=== PATIENT | female | born 2000 | race Caucasian/White ===

== ENCOUNTER 2021-02-03 02:36 | Emergency (ER) | payer BC, MEDICAID ==
[~2021-02-03] VITALS: Ht 167.6 cm; Wt 63.6 kg
[~2021-02-03 02:36] MED LIST: ABILIFY5 MG PO; INTUNIV1 MG PO; MILLIPRED10 MG/5 ML PO; PROAIR HFA0.09 MG/AC IH; RISPERDAL 0.20.25 MG; RT ALBUTER2.5 MG/0.5 IH; SINGULAIR 4MG CH4 MG PO; SUDAFED 12 HOU120 MG PO; VYVANSE20 MG PO
[2021-02-03 02:39] VITALS: TEMP 96.3
[2021-02-03 03:00] LABS: BASO # 0.1 K/mm3 (0.0-0.2); EOS # 0.4 K/mm3 (0.0-0.7); EOS % 3.7 % (0-4.0); GRAN # 7.1 K/mm3 (1.4-6.5); GRAN % 61.6 % (42.2-75.2); HEMOGLOBIN 12.8 g/dl (12.0-15.0); LYMPH # 3.2 K/mm3 (1.2-3.4); LYMPH % 27.5 % (20.0-51.0); MEAN CELL VOLUME 92 fl (80.0-95.0); MEAN CORPUSCULAR HEMOGLOBIN 30 pg (26.0-32.0); MEAN CORPUSCULAR HGB CONC 32 g/dl (33.0-37.0); MEAN PLATELET VOLUME 9.4 fl (7.4-10.4); MONO # 0.7 K/mm3 (0.1-0.6); MONO % 5.9 % (1.7-9.3); PLATELET COUNT 381 K/mm3 (130-400); RED BLOOD COUNT 4.34 M/mm3 (4.10-5.30)
[2021-02-03 03:17] LABS: ALANINE AMINOTRANSFERASE 11 U/L (0-55); ALBUMIN 4.6 gm/dL (3.5-5.0); ALCOHOL(ethanol),MEDICAL 225 mg/dL (0-10); ALKALINE PHOSPHATASE 66 U/L (40-150); ANION GAP 12 mmol/L (7-16); AST,SGOT 21 U/L (5-34); BILIRUBIN,TOTAL 0.3 mg/dL (0.2-1.2); BLOOD UREA NITROGEN 9 mg/dL (8-21); CALCIUM 9.5 mg/dL (8.4-10.2); CARBON DIOXIDE 17 mmol/L (22-29); CHLORIDE 109 mmol/L (98-107); CREATININE, serum 0.81 mg/dL (0.57-1.11); GLUCOSE 110 mg/dL (70-99); POTASSIUM 3.2 mmol/L (3.5-4.5); SODIUM 138 mmol/L (136-145)
[2021-02-03 03:43] LABS: TROPONIN-I < 0.010 ng/mL (0.00-0.033)
[2021-02-03 07:51] VITALS: BP 126/80; PULSE 83
== END 2021-02-03 08:03 | disposition home or self-care (01) ==
LOC: COL.ER 02:36
PROVIDERS: Emergency Medicine
DX: F10.129 Alcohol abuse with intoxication, unspecified (principal); E87.6 Hypokalemia; J45.909 Unspecified asthma, uncomplicated; Z79.899 Other long term (current) drug therapy; Y90.7 Blood alcohol level of 200-239 mg/100 ml
CPT/HCPCS: J2405; J3480; J7030

== ENCOUNTER 2021-09-12 07:02 | Emergency (ER) | payer BC, MEDICAID ==
[~2021-09-12] VITALS: Ht 154.9 cm; Wt 57.3 kg
[2021-09-12 07:23] VITALS: TEMP 98.1
[2021-09-12] MEDS ORDERED: PAXLOVID CO-PA1 EACH PO (07:30)
[2021-09-12] MEDS ORDERED: SYNTHROID0.075 MG/T PO (07:31)
[2021-09-12] MEDS ORDERED: SINGULAIR 110 MG/TAB PO (07:31)
[2021-09-12] MEDS ORDERED: 00186-0372-20 PO (07:31)
[2021-09-12] MEDS ORDERED: LAMICTAL 100MG100 MG PO (07:32)
[2021-09-12] MEDS ORDERED: INTUNIV3 MG PO (07:32)
[2021-09-12] MEDS ORDERED: ESKALITH C450 MG/TAB PO (07:32)
[2021-09-12] MEDS ORDERED: BUSPAR10 MG PO (07:32)
[2021-09-12] MEDS ORDERED: VALTREX1 GM PO (07:33)
[2021-09-12] MEDS ORDERED: STRATTERA 40MG40 MG PO (07:33)
[2021-09-12 08:30] VITALS: BP 129/82
[2021-09-12 09:45] VITALS: PULSE 103
== END 2021-09-12 09:59 | disposition home or self-care (01) ==
LOC: COL.ER 07:02
DX: U07.1 COVID-19 (principal); Z79.899 Other long term (current) drug therapy
CPT/HCPCS: J7040

== ENCOUNTER 2022-05-12 11:04 | Emergency (ER) | payer SELFPAY ==
[~2022-05-12] VITALS: Ht 154.9 cm; Wt 60.0 kg
[~2022-05-12 11:04] MED LIST changes: +00186-0372-20 PO; +BUSPAR10 MG PO; +ESKALITH C450 MG/TAB PO; +INTUNIV3 MG PO; +LAMICTAL 100MG100 MG PO; +PAXLOVID CO-PA1 EACH PO; +SINGULAIR 110 MG/TAB PO; +STRATTERA 40MG40 MG PO; +SYNTHROID0.075 MG/T PO; +VALTREX1 GM PO
[2022-05-12 13:18] VITALS: BP 96/66; PULSE 66; TEMP 97.4
== END 2022-05-12 13:19 | disposition home or self-care (01) ==
LOC: COL.ER 11:04
DX: S39.012A Strain of muscle, fascia and tendon of lower back, initial encounter (principal); W01.0XXA Fall on same level from slipping, tripping and stumbling without subsequent striking against object, initial encounter; Y92.59 Other trade areas as the place of occurrence of the external cause; Y99.0 Civilian activity done for income or pay